=== PATIENT | female | born 1995 | race Caucasian/White ===

== ENCOUNTER 2016-04-29 00:21 | Emergency (ER) | payer OTHER ==
[~2016-04-29] VITALS: Ht 165.1 cm; Wt 70.5 kg
[~2016-04-29 00:21] MED LIST: AMOX875T PO; OMEG10007 PO; PHEN-622
[2016-04-29 00:26] VITALS: TEMP 36.6; Ht 165.1 cm; Wt 70.5 kg
--- NOTE | 2016-04-29 00:49 | EMERGENCY ROOM VISIT NOTE ---
History Report prepared by Kerry: Benjamin Rocha Under the Supervision of: Dr. Maricel Disla D.O. First contact with patient: 00:31 Chief Complaint: URINARY SYMPTOMS Stated Complaint: BURNING History of Present Illness The patient is a 21 year old female who presents to the Emergency Room with complaints of persistent vaginal burning that started 1-2 weeks ago. The patient thought she had a yeast infection. She bought Miconazole three days ago but didn't use it until today. The patient noticed increased burning after using the Miconazole today. The patient describes the burning as more of a discomfort than pain. The patient denies any pain with urination or trouble passing stools. She was started on antibiotics over one week ago for a sinus infection, which she takes BID. The patient is due for her period. She has never had vaginal sex. The patient denies any health problems. Source of History: patient Onset: 1-2 weeks ago Position: other (vagina) Quality: burning Timing: other (persistent) Associated Symptoms: No urinary symptoms Review of Systems See HPI for pertinent positives & negatives. A total of 10 systems reviewed and were otherwise negative. Past Medical & Surgical Medical Problems: (1) Ovarian cyst (2) Sinus infection Family History No pertinent family history Social History Smoking Status: Never Smoker Occupation Status: [employer] student Current/Historical Medications Scheduled Amoxicillin & Pot Clavulanate (Augmentin 875-125 mg), 1 TAB PO BID Calcium Carbonate-Vitamin D (Calcium 600 + D), 1 TAB PO DAILY Multiple Vitamins W/ Minerals (Emergen-C Vitamin C), 1 DOSE PO DAILY Multivitamin (Multivitamin), 1 TAB PO DAILY Allergies Coded Allergies: No Known Allergies (Unverified , 04/29/16) Physical Exam Vital Signs Date Time Temp Pulse Resp B/P Pulse Ox O2 Delivery O2 Flow Rate FiO2 04/29/16 01:49 65 20 132/67 98 04/29/16 00:26 36.6 75 18 122/81 98 Room Air Physical Exam HEENT: Head - normocephalic and atraumatic Pupils are equal, round, and reactive to light. Extraocular eye muscles are intact, and sclera are anicteric. Nose - moist nasal mucosa without discharge. Mouth - moist buccal mucosa. Oropharynx is nonerythematous and there is no tonsillar exudate or edema noted. Neck: Supple; no cervical lymphadenopathy Heart: Regular rate and rhythm. There is a normal S1 and S2 with no murmurs, clicks, or gallops appreciated. Lungs: Clear to auscultation bilaterally with no wheezes, rales, or rhonchi. Abdomen: Soft, completely nontender, nondistended, with good bowel sounds. There are no palpable pulsatile masses or hepatosplenomegaly. There is no guarding, rigidity, or rebound noted. Extremities: No evidence of cyanosis, clubbing, or edema. There are easily palpable peripheral pulses. Skin: warm and dry with good turgor and no rashes. Pelvic: Findings consistent with yeast infection. There is moderate erythema to the labia and introitus. There is thick cottage cheese like discharge noted. Medical Decision & Procedures Laboratory Results Test 04/29/16 00:35 Urine Color YELLOW Urine Appearance CLOUDY (CLEAR) Urine pH 6.5 (4.5-7.5) Urine Specific [place] 1.016 (1.000-1.030) Urine Protein NEG (NEG) Urine Glucose (UA) NEG (NEG) Urine Ketones NEG (NEG) Urine Occult Blood TRACE (NEG) Urine Nitrite NEG (NEG) Urine Bilirubin NEG (NEG) Urine Urobilinogen NEG (NEG) Urine Leukocyte Esterase SMALL (NEG) Urine WBC (Auto) 10-30 /hpf (0-5) Urine RBC (Auto) 0-4 /hpf (0-4) Urine Hyaline Casts (Auto) 1-5 /lpf (0-5) Urine Epithelial Cells (Auto) >30 /lpf (0-5) Urine Bacteria (Auto) 1+ (NEG) Urine Crystals (NONE PRSENT) Urine Test NEG (NEG) Laboratory results per my review. Medications Administered Medications (Trade) Dose Ordered Sig/Ariane Route Start Time Stop Time Status Last Admin Dose Admin Fluconazole (Diflucan Tab) 150 mg NOW ONCE PO 04/29/16 01:30 04/29/16 01:31 DC 04/29/16 01:30 150 MG Procedure Medications administered include Diflucan PO. ED Course 0038: Past medical records reviewed. The patient was evaluated in room B2. A complete history and physical exam was performed. 0125: Pelvic examination performed. 0130: Discussed the findings with her. She verbalized understanding and agreement of the treatment plan. The patient is ready for discharge. 0130: Diflucan 150 mg PO. Medical Decision The patient is a 21 year old female who presents to the ED with vaginal burning. Differential diagnosis includes vaginal candidiasis, skin reaction to medication, UTI. Laboratory interpretation: Urine was negative, contained trace blood, small leukocyte esterase, 1+ bacteria, white cells 10-30. Urinalysis showed no significant signs of urinary tract infection. We will treat the patient with a stable dose of Diflucan. I've encouraged her to take warm soaks 3 times a day for the next couple days. She can stop using the Vagistat wipes and the month miconazole cream Impression Primary Impression: Yeast infection involving the vagina and surrounding area Scribe Attestation The scribe's documentation has been prepared under my direction and personally reviewed by me in its entirety. I confirm that the note above accurately reflects all work, treatment, procedures, and medical decision making performed by me. Departure Information Dispostion Home / Self-Care Referrals No Doctor, Assigned (PCP) Forms HOME CARE DOCUMENTATION FORM, IMPORTANT VISIT INFORMATION Patient Instructions My [facility], Vaginal Infec Yeast Additional Instructions Rest Do not use miconozole cream any more. Take ibuprofen for pain Do warm soaks in a tub three times a day.
[2016-04-29] MEDS ORDERED: MULT1CHW84 PO (01:04)
[2016-04-29] MEDS ORDERED: CALC-20 PO (01:04)
[2016-04-29] MEDS ORDERED: MULT-506 PO (01:04)
[2016-04-29 01:06] LABS: URINE APPEARANCE CLOUDY (CLEAR); URINE BILIRUBIN NEG (NEG); URINE COLOR YELLOW; URINE EPITHELIAL CELL AUTO >30 /lpf (0-5); URINE NITRITE NEG (NEG); URINE PH 6.5 (4.5-7.5); URINE SPECIFIC GRAVITY 1.016 (1.000-1.030); UROBILINOGEN NEG (NEG)
[2016-04-29 01:09] LABS: MANUAL MICROSCOPIC REQUIRED? NO; REVIEW REQ? YES
[2016-04-29] MEDS ORDERED: FLUCONAZOLE 50 MG TAB PO ONE (01:30)
[2016-04-29 01:49] VITALS: BP 132/67; PULSE 65; O2SAT 98
== END 2016-04-29 01:50 | disposition home or self-care (01) ==
LOC: C.EDB 00:22
DX: B37.3 Candidiasis of vulva and vagina (principal)